=== PATIENT | male | born 1980 | race Caucasian/White ===

== ENCOUNTER 2019-04-24 14:18 | Emergency (ER) | payer OTHER ==
[2019-04-24 15:04] LABS: Bilirubin Negative (Negative); Blood, Urine Trace (Negative); Clarity Clear (Clear); Glucose, Urine (Dipstick) 250 mg/dL (Negative); Leukocyte Negative (Negative); Nitrite Negative (Negative); Protein, Urine (Dipstick) Negative (Neg-Trace)
[2019-04-24 15:06] LABS: RBC/HPF 0-3 HPF (0-3); Squamous Epithelial 0-3 HPF (0-3); WBC/HPF 0-3 HPF (0-3)
[2019-04-24 15:07] LABS: Bacteria/HPF Rare-Few HPF (None Seen)
--- NOTE | 2019-04-24 19:59 | CT ---
CT ABDOMEN AND PELVIS WITHOUT CONTRAST: 04/24/[address] of the abdomen and pelvis was performed for evaluation of pain, particularly in the right g roin. Axial slices were acquired followed by coronal reconstructions. The lung bases are clear. No effusions are present. The liver, spleen, pancreas, adrenal glands, and abdominal aorta showed no acute findings within the limitations of a noncontrast study. The gallbladd er is rather small but otherwise unremarkable. The kidneys showed no mass or hydronephrosis. A tiny c alculus is present in the lower pole of the right kidney. No ureteral calculi were seen. The bowel shows no distention or wall thickening. The appendix was identified and appears normal. CT of the pelvis shows no pelvic masses, fluid collections, or inflammatory changes. Calcification of each vas deferens is noted, somewhat unusual in this young age. The most typical courses for such wo uld be diabetes or prior infections. Small fat filled inguinal hernias are present bilaterally. IMPRESSION: 1. Small nonobstructing calculus in the right kidney, but no acute abdominal or pelvic findings to explain the patient's pain. 2. Vas deferens calcifications as noted. POS: HOME
== END 2019-04-24 15:10 | disposition home or self-care (01) ==
LOC: BURERS 14:18
DX: K40.90 Unilateral inguinal hernia, without obstruction or gangrene, not specified as recurrent (principal); K43.9 Ventral hernia without obstruction or gangrene; N20.0 Calculus of kidney; E11.9 Type 2 diabetes mellitus without complications; F17.210 Nicotine dependence, cigarettes, uncomplicated; Z79.84 Long term (current) use of oral hypoglycemic drugs
CPT/HCPCS: 74176; 81003; 81015

== ENCOUNTER 2020-09-02 12:35 | Emergency (ER) | payer OTHER, SELFPAY ==
--- NOTE | 2020-09-02 17:36 | CT ---
CT OF THE BRAIN WITHOUT CONTRAST: 09/02/20 The ventricles are normal in size with no shift. No intracranial bleeding, mass or sign of acute stro ke was appreciated. No bleeding was seen. The visible paranasal sinuses are clear. The calvarium is n ormal in appearance. IMPRESSION: No acute intracranial findings. Preliminary report called to [facility] in ER at 1337 on 09/02/20. POS: HOME
--- NOTE | 2020-09-02 17:43 | CT ---
CT OF THE CERVICAL SPINE 09/02/20 Aside from some slight loss of the normal lordosis, no fracture, dislocation, or other acute traumati c change was found. The disc spaces are normal in height and the C1 to dens distance is normal. The s oft tissues are normal in thickness. There is no significant foraminal or central canal stenosis visi ble. IMPRESSION: Aside from slight loss of lordosis, no acute traumatic findings. Preliminary report called to [facility] in ER at 1337 on 09/02/20. POS: HOME
== END 2020-09-02 13:55 | disposition home or self-care (01) ==
LOC: BURERS 12:35
DX: M54.31 Sciatica, right side (principal); M54.12 Radiculopathy, cervical region; R29.700 NIHSS score 0; F17.210 Nicotine dependence, cigarettes, uncomplicated; E11.9 Type 2 diabetes mellitus without complications
CPT/HCPCS: 70450; 72125

== ENCOUNTER 2020-09-21 19:38 | Emergency (ER) | payer OTHER ==
[2020-09-21] MEDS ORDERED: Ibuprofen 200 MG TAB ONE (20:24)
[2020-09-21 20:49] LABS: Hemoglobin 16.8 g/dL (14.0-18.0); Mean Corpuscular HGB CONC 33.2 g/dL (32.0-36.0); Mean Platelet Volume 9.1 fL (7.4-10.4); Platelet Count 127 thou/uL (130-400); RBC Distribution Width 10.6 % (11.5-14.5); Red Blood Cell (RBC) Count 4.93 mill/uL (4.70-6.10); White Blood Cell (WBC) Count 15.5 thou/uL (4.8-10.8)
[2020-09-21 20:50] LABS: ALT (SGPT) 33 U/L (8-55); AST (SGOT) 28 U/L (5-34); Albumin 4.2 g/dL (3.5-5.0); Alkaline Phosphatase 87 U/L (40-110); Anion Gap 16 mmol/L (10-20); BUN (Urea Nitrogen) 7 mg/dL (8.9-20.6); Bilirubin, Total 0.8 mg/dL (0.2-1.2); Calc. Creatinine Clearance 0 mL/min (70-130); Calcium 9.3 mg/dL (7.8-10.44); Carbon Dioxide 24 mmol/L (22-29); Chloride 99 mmol/L (98-107); Globulin 3.6 g/dL (2.4-3.5); Glucose 157 mg/dL (70-105); Potassium 3.8 mmol/L (3.5-5.1); Protein, Total 7.8 g/dL (6.0-8.3); Sodium 135 mmol/L (136-145)
[2020-09-21 20:53] LABS: Band 14 % (5-11); Eosinophils 1 % (0-10); Lymphocytes 9 % (21-51); MDiff Complete? YES; Monocytes 11 % (0-10); Neutrophil 64 % (42-75)
[2020-09-21] MEDS ORDERED: Dexamethasone 4 MG TAB ONE (20:59)
[2020-09-22 18:52] LABS: SARS-CoV-2 PCR by NAA Not Detected (NotDetected)
== END 2020-09-21 22:13 | disposition home or self-care (01) ==
LOC: BURERS 19:38
DX: J02.9 Acute pharyngitis, unspecified (principal); Z20.822 Contact with and (suspected) exposure to COVID-19; E11.9 Type 2 diabetes mellitus without complications; F17.210 Nicotine dependence, cigarettes, uncomplicated; Z79.84 Long term (current) use of oral hypoglycemic drugs
CPT/HCPCS: 71045; 80053; 83605; 85025; 87081; 87430; 87635; J8540; U0003; U0005

== ENCOUNTER 2022-05-15 13:12 | Emergency (ER) | payer OTHER ==
[2022-05-15 13:44] LABS: #Basophils 0.1 thou/uL (0.0-0.2); #Eosinphils 0.2 thou/uL (0.0-0.7); #Lymphocytes 1.6 thou/uL (1.20-3.40); #Monocytes 0.6 thou/uL (0.11-0.59); %Basophils 1.2 % (0.0-1.0); %Eosinophils 2.2 % (0.0-10.0); %Lymphocytes 21.8 % (21.0-51.0); %Monocytes 8.2 % (0.0-10.0); %Neutrophils 66.6 % (42.0-75.0); Mean Corpuscular HGB CONC 33.2 g/dL (32.0-36.0); Mean Corpuscular Hemoglobin 35.2 pg (27.0-31.0); Mean Platelet Volume 8.4 fL (7.4-10.4); Platelet Count 173 thou/uL (130-400); RBC Distribution Width 10.8 % (11.5-14.5); Red Blood Cell (RBC) Count 4.84 mill/uL (4.70-6.10); White Blood Cell (WBC) Count 7.5 thou/uL (4.8-10.8)
[2022-05-15 13:46] LABS: MDiff Complete? YES
[2022-05-15 14:01] LABS: ALT (SGPT) 43 U/L (8-55); AST (SGOT) 44 U/L (5-34); Albumin 4.3 g/dL (3.5-5.0); Alkaline Phosphatase 80 U/L (40-110); Anion Gap 18 mmol/L (10-20); BUN (Urea Nitrogen) 8 mg/dL (8.9-20.6); Bilirubin, Total 0.6 mg/dL (0.2-1.2); Calc. Creatinine Clearance 0 mL/min (70-130); Calcium 9.3 mg/dL (7.8-10.44); Carbon Dioxide 24 mmol/L (22-29); Chloride 97 mmol/L (98-107); Estimated GFR 89; Globulin 3.8 g/dL (2.4-3.5); Glucose 257 mg/dL (70-105); Potassium 3.7 mmol/L (3.5-5.1); Protein, Total 8.1 g/dL (6.0-8.3); Sodium 135 mmol/L (136-145)
[2022-05-15 15:12] LABS: Base Excess-Venous 0.6 mmol/L (-2.0 to 3.0); Bicarbonate (HCO3v) 26.4 mmol/L (22.0-28.0); CO2 Tension (PvCO2) 44.8 mmHg (42.0-51.0); Calcium, Ionized 1.12 mmol/L (1.15-1.33); Chloride 103 mmol/L (98-107); Hemoglobin - Calc 17.1 g/dL (14.0-18.0); Potassium 4.1 mmol/L (3.5-5.1); Sodium 139 mmol/L (138-145); T. Carbon Dioxide 27.7 mmol/L (22.0-28.0); vO2 Saturation-calc 61.2 % (60.0-85.0)
== END 2022-05-15 15:36 | disposition home or self-care (01) ==
LOC: BURERS 13:12
DX: I10 Essential (primary) hypertension (principal); E11.65 Type 2 diabetes mellitus with hyperglycemia; E86.0 Dehydration; F17.210 Nicotine dependence, cigarettes, uncomplicated
CPT/HCPCS: 36415; 71045; 80053; 82330; 82803; 83880; 84484; 85025; 93005; 96360

== ENCOUNTER 2025-03-16 21:28 | Emergency (ER) | payer OTHER ==
[2025-03-16 22:16] LABS: INR-International Normal Ratio 1.1; PTT 25.9 sec (22.9-36.1); Prothrombin Time 14.1 sec (12.0-14.7)
[2025-03-16 22:17] LABS: #Basophils 0.1 thou/uL (0.0-0.2); #Eosinophils 0.1 thou/uL (0.0-0.7); #Lymphocytes 2.0 thou/uL (1.20-3.40); #Monocytes 0.8 thou/uL (0.11-0.59); #Neutrophils 6.0 thou/uL (1.40-6.50); %Basophils 1.4 % (0.0-1.0); %Eosinophils 1.6 % (0.0-10.0); %Lymphocytes 21.9 % (21.0-51.0); %Monocytes 8.4 % (0.0-10.0); %Neutrophils 66.6 % (42.0-75.0); Hematocrit 48.2 % (42.0-52.0); Hemoglobin 18.0 g/dL (14.0-18.0); Mean Corpuscular Hemoglobin 36.5 pg (27.0-31.0); Mean Corpuscular Volume 97.9 fl (78.0-98.0); Platelet Count 190 10x3/uL (130-400); Red Blood Cell (RBC) Count 4.93 mill/uL (4.70-6.10); White Blood Cell (WBC) Count 9.1 10x3/uL (4.8-10.8)
[2025-03-16 22:25] LABS: ALT (SGPT) 51 U/L (Less than 45); AST (SGOT) 62 U/L (11-34); Albumin 4.4 g/dL (3.1-4.5); Alkaline Phosphatase 59 U/L (40-110); Anion Gap 22 mmol/L (10-20); BUN (Urea Nitrogen) 4 mg/dL (8.9-20.6); Bilirubin, Total 0.5 mg/dL (0.3-1.2); Calc. Creatinine Clearance 0 mL/min (70-130); Calcium 9.2 mg/dL (7.8-10.44); Carbon Dioxide 18 mmol/L (22-29); Chloride 106 mmol/L (98-107); Globulin 3.7 g/dL (2.4-3.5); Glucose 163 mg/dL (70-105); Lipase 28 U/L (8-78); Potassium 3.9 mmol/L (3.5-5.1); Sodium 142 mmol/L (136-145)
== END 2025-03-16 22:46 ==
LOC: BURERS 21:28
DX: S01.81XA Laceration without foreign body of other part of head, initial encounter (principal); S51.012A Laceration without foreign body of left elbow, initial encounter; S40.212A Abrasion of left shoulder, initial encounter; V89.2XXA Person injured in unspecified motor-vehicle accident, traffic, initial encounter
CPT/HCPCS: 12002; 12011; 36415; 70450; 71045; 72125; 80053; 83690; 85025; 85610; 85730